=== PATIENT | male | born 1970 | race Caucasian/White ===

== ENCOUNTER 2016-10-12 19:21 | Emergency (ER) | payer SELFPAY ==
[~2016-10-12] VITALS: Ht 162.6 cm; Wt 67.3 kg
[~2016-10-12 19:21] MED LIST: LORA0.5T PO
[2016-10-12] MEDS ORDERED: SODIUM CHLORIDE 0.9% 1,000 ML IV ONE (20:24)
[2016-10-12] MEDS ORDERED: ONDANSETRON 2MG/ML, 2ML ONE (20:25)
[2016-10-12] MEDS ORDERED: FAMOTIDINE 20 MG/2 ML IVP ONE (20:30)
[2016-10-12] MEDS ORDERED: SODIUM CHLORIDE FLUSH 10ML SYR IVF ONE (20:30)
[2016-10-12] MEDS ORDERED: SODIUM CHLORIDE 0.9% 1,000ML IVBOLUS ONE (20:30)
[2016-10-12] MEDS ORDERED: ONDANSETRON 2MG/ML, 2ML IVPush ONE (20:30)
[2016-10-12 21:02] LABS: ASPARTATE AMINO TRANSFERASE 12 U/L (15-37); BLOOD UREA NITROGEN 13 mg/dL (7-18)
[2016-10-12] MEDS ORDERED: ACETAMINOPHEN 325 MG TABLET PO ONE (22:00)
[2016-10-12] MEDS ORDERED: ACETAMINOPHEN 325 MG TABLET ONE (22:41)
[2016-10-12 23:34] VITALS: BP 128/68
== END 2016-10-12 23:37 | disposition home or self-care (01) ==
LOC: ED 21:27
DX: K21.9 Gastro-esophageal reflux disease without esophagitis (principal); E87.1 Hypo-osmolality and hyponatremia
CPT/HCPCS: 36415; 80053; 83690; 85025; 96361; 96374; 99285; J2405; J7030